=== PATIENT | female | born 1980 | race Caucasian/White ===

== ENCOUNTER 2017-01-17 06:04 | Day surgery (SDC) | payer BC ==
[2017-01-17] MEDS ORDERED: Lactated Ringers 1,000 ML IV SCH (06:30)
[2017-01-17] MEDS ORDERED: DIPRIVAN 200 MG/20 ML IV ONE (08:00)
[2017-01-17 08:33] VITALS: O2SAT 97
--- NOTE | 2017-01-17 08:36 | OP ---
SURGERY DATE/TIME: 01/17/2017 0745 PREOPERATIVE DIAGNOSIS: Epigastric pain. POSTOPERATIVE DIAGNOSIS: Mild gastritis and hiatal hernia. PROCEDURE: Esophagogastroduodenoscopy with biopsy. SURGEON: Dr. Leon. ANESTHESIA: Medications were given by the anesthesia department. BRIEF HISTORY: The patient is a 37 year old white female presenting with epigastric pain. The patient reports taking no medications. She does take occasional ibuprofen for headaches on about once a week basis. The patient reports that she had gallbladder ultrasound and HIDA scans which were negative. The patient was felt the need to have endoscopic evaluation. She was appraised of the risks of the procedure including the risk of perforation, phlebitis, untoward reaction to medication, bleeding, and missed lesions. The patient verbalized her understanding and desired to have the procedure performed. DESCRIPTION OF PROCEDURE: The patient was placed in left lateral decubitus position. A bite block was placed. The flexible Olympus gastroscope was used to intubate the oropharynx. A view of the larynx was obtained and was normal. The scope was easily introduced in the esophagus which appeared to be normal to the gastroesophageal junction. There appeared to be a small hiatal hernia present. The scope was passed in the stomach where normal gastric rugal folds were seen and these distended nicely with insufflation of air. The scope was passed along the greater curvature of the stomach to the antrum. Pylorus was encountered and intubated. The duodenum was inspected and found to be normal. The scope was withdrawn towards the stomach. Again, a retroflex view was obtained of the lesser curvature, fundus and cardia regions of the stomach and these appeared to be normal other than the presence of the hiatal hernia. The scope was then redirected towards the gastric antrum and biopsies were obtained to rule out the presence of Helicobacter pylori-type organisms. The scope was then removed from the patient who tolerated the procedure well and was sent back to the outpatient recovery area in good condition.
[2017-01-17 09:48] VITALS: BP 105/60; PULSE 77
== END 2017-01-17 09:15 | disposition home or self-care (01) ==
LOC: SDC 06:04
PROVIDERS: ATTEND Family Medicine
PROC: 0DB68ZX Excision of Stomach, Via Natural or Artificial Opening Endoscopic, Diagnostic (ICD-10-PCS; principal; 2017-01-17)
DX: K29.70 Gastritis, unspecified, without bleeding (principal); K44.9 Diaphragmatic hernia without obstruction or gangrene
CPT/HCPCS: 00740; 36415; 88305; J2704

== ENCOUNTER 2020-04-23 19:37 | Emergency (ER) | payer BC ==
--- NOTE | 2020-04-23 19:46 | ERPHSYRPT ---
- History of Present Illness Time Seen by Provider: 04/23/20 19:46 Source: patient, family Exam Limitations: no limitations Physician History: This is a 40-year-old white female who is obese and presents with 2-day history of left sided perineal abscess. Patient states there is some tenderness there and she squeeze the abscess yesterday and had a large amount of amaro fluid come out of there. She then squeezed it again later and only blood has come out. There is much less pain. She states that she has not had any fevers. Patient states she is not diabetic. Timing/Duration: day(s) (2), improved Quality: painful Severity: mild Associated Symptoms: swelling/mass/lumps, No fever Allergies/Adverse Reactions: No Known Drug Allergies Allergy (Verified 01/17/17 06:48) Home Medications: Desvenlafaxine Succinate [Pristiq ER] 50 mg PO DAILY 01/14/17 [History] Meclizine HCl 25 mg [Antivert 25 mg] 25 mg PO DAILY 01/14/17 [History] Alprazolam [Xanax] 1 tab PO DAILY PRN 04/23/20 [History] Aripiprazole [Abilify] 1 tab PO DAILY 04/23/20 [History] Hx Tetanus, Diphtheria Vaccination/Date Given: Yes Hx Influenza Vaccination/Date Given: Yes Hx Pneumococcal Vaccination/Date Given: Yes Travel Risk - International Travel Have you traveled outside of the country in past 3 weeks: No - Coronavirus Screening Are you exhibiting any of the following symptoms?: No Close contact with a COVID-19 positive Pt in past 14-21 Days: No - Review of Systems Constitutional: No Symptoms Eyes: No Symptoms Ears, Nose, & Throat: No Symptoms Respiratory: No Symptoms Cardiac: No Symptoms Abdominal/Gastrointestinal: No Symptoms, No Abdominal Pain, No Nausea, No Vomiting Genitourinary Symptoms: No Symptoms Musculoskeletal: No Symptoms Skin: Other (Left side peroneal area of induration with a small opening present. There was no expressible pus present. There is very minimal tenderness present. There is no obvious cellulitis) Neurological: No Symptoms Psychological: No Symptoms Endocrine: No Symptoms Hematologic/Lymphatic: No Symptoms Immunological/Allergic: No Symptoms All Other Systems: Reviewed and Negative - Past Medical History Pertinent Past Medical History: Yes Neurological History: No Pertinent History ENT History: No Pertinent History Cardiac History: No Pertinent History Respiratory History: No Pertinent History Endocrine Medical History: No Pertinent History Musculoskeletal History: No Pertinent History GI Medical History: No Pertinent History History: No Pertinent History Psycho-Social History: Anxiety, Depression Female Reproductive Disorders: Other Other Medical History: vaginal bleeding x 7 months - Past Surgical History Past Surgical History: Yes Neuro Surgical History: No Pertinent History Cardiac: No Pertinent History Respiratory: No Pertinent History Gastrointestinal: No Pertinent History Genitourinary: No Pertinent History Musculoskeletal: No Pertinent History Female Surgical History: Hysterectomy Other Surgical History: TONSILECTOMY - Social History Smoking Status: Never smoker Exposure to second hand smoke: No Drug Use: none Patient Lives Alone: No - Physical Exam General Appearance: no apparent distress, alert, anxiety, obese Eye Exam: PERRL/EOMI Ears, Nose, Throat Exam: normal ENT inspection, moist mucous membranes Neck Exam: normal inspection, non-tender, supple, full range of motion Respiratory Exam: airway intact, No chest tenderness, No respiratory distress Gastrointestinal/Abdomen Exam: No tenderness Pelvic Exam: other (External examination of the perineum reveals area of induration on the left side. There is no expressible pus present. There is mild redness around the opening of the abscess) Rectal Exam: not done ( but no danielle cellulitis.) Back Exam: normal inspection, normal range of motion, No CVA tenderness, No vertebral tenderness Extremity Exam: normal inspection, normal range of motion, pelvis stable Neurologic Exam: alert, oriented x 3, cooperative, subcontract administrator II-XII nml as tested, normal mood/affect, nml cerebellar function, nml station & gait, sensation nml Skin Exam: normal color, warm, dry, other (see above) Lymphatic Exam: No adenopathy SpO2 Interpretation: normal O2 Delivery: Room Air - Course Nursing assessment & vital signs reviewed: Yes Ordered Tests: Medication Summary Discontinued Medications Generic Name Dose Route Start Last Admin Trade Name Freq PRN Reason Stop Dose Admin Cephalexin HCl 500 mg 04/23/20 19:57 Keflex 500 Mg PO 04/23/20 19:58 STAT ONE - Progress Progress: unchanged Counseled pt/family regarding: diagnosis, need for follow-up - Departure Departure Disposition: Home Clinical Impression: Abscess Condition: Stable Critical Care Time: No Referrals: ELVIRA BROWN MD [Primary Care Provider] - Additional Instructions: Sitz bath with warm, soapy water or Epson salt twice a day. Take your antibiotics as prescribed. Follow-up with your primary care physician for further management. Prescriptions: Cephalexin Mh 500 mg [Keflex 500 mg] 500 mg PO TID #21 capsule
[2020-04-23] MEDS ORDERED: KEFLEX 500 MG PO ONE (19:57)
[2020-04-23 20:02] VITALS: BP 152/102; PULSE 106; O2SAT 98
[2020-04-23] MEDS ORDERED: KEFLEX 500 MG ONE (20:02)
== END 2020-04-23 20:22 | disposition home or self-care (01) ==
LOC: ED 19:37
DX: L02.215 Cutaneous abscess of perineum (principal)
CPT/HCPCS: 99283; A9270-GY

== ENCOUNTER 2021-10-16 14:02 | Emergency (ER) | payer BC ==
--- NOTE | 2021-10-16 14:09 | ERPHSYRPT ---
- History of Present Illness Time Seen by Provider: 10/16/21 14:09 Source: patient Exam Limitations: no limitations Physician History: This is a 41-year-old white female who states that she was diagnosed with COVID- 19 infection "sometime last week" with a home test. Patient states that a few days before that she was feeling feverish, nauseated, and body aches, cough and shortness of breath. In the last few days, she has had worsening cough and shortness of breath symptoms. She has not had any diarrhea. She does not have significant chest pain. Timing/Duration: week(s) (1) Severity of Dyspnea-Max: moderate Severity of Dyspnea-Current: mild Possible Cause: no prior episodes Modifying Factors: Improves With: activity, coughing, exertion Associated Symptoms: anxiety, cough, No chest pain/discomfort Allergies/Adverse Reactions: No Known Drug Allergies Allergy (Verified 10/16/21 14:06) Home Medications: Desvenlafaxine Succinate [Pristiq ER] 50 mg PO DAILY 01/14/17 [History] Hx Tetanus, Diphtheria Vaccination/Date Given: Yes Hx Influenza Vaccination/Date Given: Yes Hx Pneumococcal Vaccination/Date Given: Yes Travel Risk - International Travel Have you traveled outside of the country in past 3 weeks: No - Coronavirus Screening Are you exhibiting any of the following symptoms?: Yes Symptoms: Cough: New Onset, Shortness of Breath, Headaches/Body Aches/Fatigue Close contact with a COVID-19 positive Pt in past 14-21 Days: No - Review of Systems Constitutional: No Symptoms Eyes: No Symptoms Ears, Nose, & Throat: No Symptoms Respiratory: Cough, Dyspnea Cardiac: No Symptoms Abdominal/Gastrointestinal: Nausea, No Abdominal Pain, No Vomiting, No Diarrhea Genitourinary Symptoms: No Symptoms Musculoskeletal: Arthralgias, Myalgias Skin: No Symptoms Neurological: No Symptoms Psychological: No Symptoms Endocrine: No Symptoms Hematologic/Lymphatic: No Symptoms Immunological/Allergic: No Symptoms All Other Systems: Reviewed and Negative - Past Medical History Pertinent Past Medical History: Yes Neurological History: No Pertinent History ENT History: No Pertinent History Cardiac History: No Pertinent History Respiratory History: No Pertinent History Endocrine Medical History: No Pertinent History Musculoskeletal History: No Pertinent History GI Medical History: No Pertinent History History: No Pertinent History Psycho-Social History: Anxiety, Depression Female Reproductive Disorders: Other Other Medical History: vaginal bleeding x 7 months - Past Surgical History Past Surgical History: Yes Neuro Surgical History: No Pertinent History Cardiac: No Pertinent History Respiratory: No Pertinent History Gastrointestinal: No Pertinent History Genitourinary: No Pertinent History Musculoskeletal: No Pertinent History Female Surgical History: Hysterectomy Other Surgical History: TONSILECTOMY - Social History Smoking Status: Never smoker How long have you smoked: 0.5 Exposure to second hand smoke: No Drug Use: none Patient Lives Alone: No - Nursing Vital Signs Nursing Vital Signs: Initial Vital Signs Temperature 97.8 F 10/16/21 14:07 Pulse Rate 96 H 10/16/21 14:07 Respiratory Rate 18 10/16/21 14:07 Blood Pressure 148/98 10/16/21 14:07 O2 Sat by Pulse Oximetry 97 10/16/21 14:07 Pain Scale Pain Intensity 0 - Physical Exam General Appearance: mild distress, alert, anxiety, obese Eye Exam: PERRL/EOMI, eyes nml inspection Ears, Nose, Throat Exam: hearing grossly normal, normal ENT inspection, normal pharynx Neck Exam: normal inspection, non-tender, supple, full range of motion Respiratory Exam: normal breath sounds, lungs clear, airway intact, No chest tenderness, No respiratory distress Cardiovascular/Chest Exam: normal heart sounds, regular rate/rhythm, normal peripheral pulses Abdominal/Gastrointestinal Exam: soft, normal bowel sounds, No tenderness Rectal Exam: not done Extremity Exam: non-tender, normal range of motion, normal inspection, normal capillary refill, no calf tenderness, no pedal edema, pelvis stable Neurologic Exam: alert, oriented x 3, cooperative, senior communications engineer II-XII nml as tested, normal mood/affect, nml cerebellar function, nml station & gait, sensation nml Skin Exam: normal color, warm, dry Lymphatic Exam: No adenopathy SpO2 Interpretation: normal O2 Delivery: Room Air - Course Nursing assessment & vital signs reviewed: Yes EKG Interpreted by Me: RATE (75), Sinus Rhythm, NORMAL AXIS, NORMAL INTERVALS, NORMAL QRS, NORMAL ST-T, Other (No acute ischemic changes.) Ordered Tests: Active Orders 24 hr Category Date Time Status Chainman STAT Care 10/16/21 14:23 Active EKG-ER Only STAT Care 10/16/21 14:22 Active IV Insertion STAT Care 10/16/21 14:22 Active Pulse Oximetry (ED) STAT Care 10/16/21 14:22 Active CHEST 1 VIEW (PORTABLE) Stat Exams 10/16/21 14:22 Completed CBC W DIFF Stat Lab 10/16/21 14:00 Completed CMP Stat Lab 10/16/21 14:00 Completed D-DIMER QUANTITATIVE Stat Lab 10/16/21 14:22 Completed INFLUENZA A+B IVANA Stat Lab 10/16/21 14:45 Completed [place] Screen Stat Lab 10/16/21 14:55 Completed NT PRO BNP Stat Lab 10/16/21 14:00 Completed TROPONIN Q3H Lab 10/16/21 14:30 Completed TROPONIN Q3H Lab 10/16/21 17:30 Ordered TROPONIN Q3H Lab 10/16/21 20:30 Ordered TROPONIN Q3H Lab 10/16/21 23:30 Ordered TROPONIN Q3H Lab 10/17/21 02:30 Ordered Medication Summary Discontinued Medications Generic Name Dose Route Start Last Admin Trade Name Freq PRN Reason Stop Dose Admin Methylprednisolone Sodium 0 mg 10/16/21 14:23 10/16/21 14:29 Succinate 125 mg/ Sterile IV 10/16/21 14:24 125 mg Water 2 ml STAT ONE Administration Methylprednisolone Sodium Succinate Confirm 10/16/21 14:26 Methylprednis Sod Succ 125 Mg/2 Ml Vial Administered 10/16/21 14:27 Dose 125 mg .ROUTE .STK-MED ONE Sterile Water Confirm 10/16/21 14:26 Water For Injection,Sterile 10 Ml Vial Administered 10/16/21 14:27 Dose 10 ml IJ .STK-MED ONE Lab/Rad Data: Laboratory Result Diagrams 10/16/21 14:00 10/16/21 14:00 Laboratory Results 10/16/21 10/16/21 10/16/21 Range/Units 14:55 14:45 14:45 WBC (4.0-10.5) K/mm3 RBC (4.1-5.4) M/mm3 Hgb (12.0-16.0) gm/dl Hct (35-47) % MCV (78-100) fl MCH (26-32) pg MCHC (32-36) g/dl RDW (11.5-14.0) % Plt Count (150-450) K/mm3 MPV (7.5-11.0) fl Gran % (36.0-66.0) % Eos # (Auto) (0-0.5) Absolute Lymphs (auto) (1.0-4.6) Absolute Monos (auto) (0.0-1.3) Lymphocytes % (24.0-44.0) % Monocytes % (0.0-12.0) % Eosinophils % (0.00-5.0) % Basophils % (0.0-0.4) % Absolute Granulocytes (1.4-6.9) Basophils # (0-0.4) D-Dimer (215-500) ng/mL Sodium (137-145) mmol/L Potassium (3.5-5.1) mmol/L Chloride (98-107) mmol/L Carbon Dioxide (22-30) mmol/L Anion Gap (5-15) MEQ/L BUN (7-17) mg/dL Creatinine (0.52-1.04) mg/dL Estimated GFR ML/MIN Glucose (74-106) mg/dL Calcium (8.4-10.2) mg/dL Total Bilirubin (0.2-1.3) mg/dL AST (14-36) U/L ALT (0-35) U/L Alkaline Phosphatase (38-126) U/L Troponin I (0.000-0.034) ng/mL NT-Pro-B Natriuret Pep (0-450) pg/mL Serum Total Protein (6.3-8.2) g/dL Albumin (3.5-5.0) g/dL Monoscreen NEGATIVE (Negative) Influenza Type A Ag NEGATIVE (NEGATIVE) Influenza Type B Ag NEGATIVE (NEGATIVE) Group A Strep Antibody NOT DETECTED (NEGATIVE) 10/16/21 10/16/21 10/16/21 Range/Units 14:30 14:22 14:00 WBC (4.0-10.5) K/mm3 RBC (4.1-5.4) M/mm3 Hgb (12.0-16.0) gm/dl Hct (35-47) % MCV (78-100) fl MCH (26-32) pg MCHC (32-36) g/dl RDW (11.5-14.0) % Plt Count (150-450) K/mm3 MPV (7.5-11.0) fl Gran % (36.0-66.0) % Eos # (Auto) (0-0.5) Absolute Lymphs (auto) (1.0-4.6) Absolute Monos (auto) (0.0-1.3) Lymphocytes % (24.0-44.0) % Monocytes % (0.0-12.0) % Eosinophils % (0.00-5.0) % Basophils % (0.0-0.4) % Absolute Granulocytes (1.4-6.9) Basophils # (0-0.4) D-Dimer 381 (215-500) ng/mL Sodium 140 (137-145) mmol/L Potassium 4.5 (3.5-5.1) mmol/L Chloride 103 (98-107) mmol/L Carbon Dioxide 26 (22-30) mmol/L Anion Gap 15.0 (5-15) MEQ/L BUN 16 (7-17) mg/dL Creatinine 0.66 (0.52-1.04) mg/dL Estimated GFR > 60.0 ML/MIN Glucose 91 (74-106) mg/dL Calcium 9.2 (8.4-10.2) mg/dL Total Bilirubin 0.70 (0.2-1.3) mg/dL AST 20 (14-36) U/L ALT 16 (0-35) U/L Alkaline Phosphatase 70 (38-126) U/L Troponin I < 0.012 (0.000-0.034) ng/mL NT-Pro-B Natriuret Pep 168 (0-450) pg/mL Serum Total Protein 7.6 (6.3-8.2) g/dL Albumin 4.5 (3.5-5.0) g/dL Monoscreen (Negative) Influenza Type A Ag (NEGATIVE) Influenza Type B Ag (NEGATIVE) Group A Strep Antibody (NEGATIVE) 10/16/21 Range/Units 14:00 WBC 7.8 (4.0-10.5) K/mm3 RBC 4.54 (4.1-5.4) M/mm3 Hgb 13.7 (12.0-16.0) gm/dl Hct 41.2 (35-47) % MCV 90.7 (78-100) fl MCH 30.2 (26-32) pg MCHC 33.3 (32-36) g/dl RDW 12.6 (11.5-14.0) % Plt Count 213 (150-450) K/mm3 MPV 10.1 (7.5-11.0) fl Gran % 61.5 (36.0-66.0) % Eos # (Auto) 0.14 (0-0.5) Absolute Lymphs (auto) 2.28 (1.0-4.6) Absolute Monos (auto) 0.56 (0.0-1.3) Lymphocytes % 29.2 (24.0-44.0) % Monocytes % 7.2 (0.0-12.0) % Eosinophils % 1.8 (0.00-5.0) % Basophils % 0.3 (0.0-0.4) % Absolute Granulocytes 4.82 (1.4-6.9) Basophils # 0.02 (0-0.4) D-Dimer (215-500) ng/mL Sodium (137-145) mmol/L Potassium (3.5-5.1) mmol/L Chloride (98-107) mmol/L Carbon Dioxide (22-30) mmol/L Anion Gap (5-15) MEQ/L BUN (7-17) mg/dL Creatinine (0.52-1.04) mg/dL Estimated GFR ML/MIN Glucose (74-106) mg/dL Calcium (8.4-10.2) mg/dL Total Bilirubin (0.2-1.3) mg/dL AST (14-36) U/L ALT (0-35) U/L Alkaline Phosphatase (38-126) U/L Troponin I (0.000-0.034) ng/mL NT-Pro-B Natriuret Pep (0-450) pg/mL Serum Total Protein (6.3-8.2) g/dL Albumin (3.5-5.0) g/dL Monoscreen (Negative) Influenza Type A Ag (NEGATIVE) Influenza Type B Ag (NEGATIVE) Group A Strep Antibody (NEGATIVE) - Progress Progress: improved, re-examined Air Movement: good Progress Note: 10/16/21 15:35 Chest x-ray shows no acute cardiopulmonary process. Blood Culture(s) Obtained: Yes Antibiotics given: No - Departure Departure Disposition: Home Clinical Impression: Viral illness, COVID-19 virus infection Condition: Stable Critical Care Time: No Referrals: ELVIRA BROWN MD [Primary Care Provider] - Follow up/PCP as directed Additional Instructions: Drink plenty of fluids. Take your medication as prescribed. Quarantine yourself per instructions. Prescriptions: Hydrocodone/Acetaminophen [Hydrocodone-Acetamn 7.5-325/15] 10 ml PO Q8H PRN PRN #120 ml MDD 30 ml PRN Reason: Cough Prednisone 10 mg [Deltasone 10 mg] 10 mg PO TID #12 tablet
[2021-10-16] MEDS ORDERED: solu-MEDROL 125 MG, Sterile H2O 10 ml 2 ML IV ONE ×2 (14:23)
[2021-10-16] MEDS ORDERED: solu-MEDROL ONE (14:26)
[2021-10-16] MEDS ORDERED: Sterile H2O 10 ml IJ ONE (14:26)
--- NOTE | 2021-10-16 14:47 | XRAY ---
Indication: Positive Covid 19. Comparison: November 02, 2014. Portable chest remains clear. Heart not enlarged. Bony thorax intact. No new/acute findings.
[2021-10-16 14:52] LABS: Absolute Neutrophil Ct (ANC) 4.82 (1.4-6.9); Basophil (Absolute #) 0.02 (0-0.4); Eosinophil % 1.8 % (0.00-5.0); Eosinophil (Absolute #) 0.14 (0-0.5); Hematocrit 41.2 % (35-47); Hemoglobin 13.7 gm/dl (12.0-16.0); Lymphocyte (Absolute #) 2.28 (1.0-4.6); Lymphocytes % 29.2 % (24.0-44.0); Mean Cell Volume 90.7 fl (78-100); Mean Corpuscular Hemoglobin 30.2 pg (26-32); Mean Corpuscular Hgb Concent. 33.3 g/dl (32-36); Mean Platelet Volume 10.1 fl (7.5-11.0); Monocyte (Absolute #) 0.56 (0.0-1.3); Monocytes % 7.2 % (0.0-12.0); Neutrophil % 61.5 % (36.0-66.0); Platelet Count 213 K/mm3 (150-450); Red Blood Count 4.54 M/mm3 (4.1-5.4); Red Cell Distribution Width 12.6 % (11.5-14.0); White Blood Count 7.8 K/mm3 (4.0-10.5)
[2021-10-16 15:01] LABS: ALBUMIN 4.5 g/dL (3.5-5.0); ALKALINE PHOSPHATASE 70 U/L (38-126); BLOOD UREA NITROGEN 16 mg/dL (7-17); CHLORIDE 103 mmol/L (98-107); Calcium 9.2 mg/dL (8.4-10.2); Carbon Dioxide 26 mmol/L (22-30); Creatinine 1 0.66 mg/dL (0.52-1.04); EST GLOMERULAR FILTRATION RATE > 60.0 ML/MIN; Glucose 91 mg/dL (74-106); NT PRO BNP 168 pg/mL (0-450); Potassium 4.5 mmol/L (3.5-5.1); SGOT/AST 20 U/L (14-36); SGPT/ALT 16 U/L (0-35); SODIUM 140 mmol/L (137-145); Total Protein 7.6 g/dL (6.3-8.2)
[2021-10-16 15:05] VITALS: O2SAT 98
[2021-10-16 15:09] LABS: INFLUENZA A NEGATIVE (NEGATIVE); INFLUENZA B NEGATIVE (NEGATIVE)
[2021-10-16 15:51] VITALS: BP 133/89; PULSE 80
== END 2021-10-16 15:55 | disposition home or self-care (01) ==
LOC: ED 14:02
DX: U07.1 COVID-19 (principal); R05.9 Cough, unspecified; R06.02 Shortness of breath; F41.9 Anxiety disorder, unspecified; Z79.891 Long term (current) use of opiate analgesic; Z79.52 Long term (current) use of systemic steroids
CPT/HCPCS: 36000; 36415; 71045; 80053; 83880; 84484; 85025; 85379; 86308; 87400; 87651; 93005; 93041; 94760; 96374; 99284; J2930